=== PATIENT | male | born 1960 | race Caucasian/White ===

== ENCOUNTER 2019-02-02 14:41 | Inpatient (IN) | payer MEDICARE, OTHER ==
[2019-02-02 14:46] VITALS: BMI 18.8
[2019-02-02 14:47] VITALS: BP 215/97; TEMP 96.5
[2019-02-02] MEDS ORDERED: Lorazepam 2 MG/ML VIAL FS PRN (16:38)
[2019-02-02] MEDS ORDERED: Hyoscyamine Sulfate SL 0.125 mg Tablet SL PRN (16:41)
[2019-02-02] MEDS ORDERED: Morphine 10 MG/0.5 ML ORAL SYRINGE PO PRN (16:42)
[2019-02-02] MEDS: Morphine 10 MG/0.5 ML ORAL SYRINGE PO SCH ×2 (17:33→21:27)
[2019-02-02] MEDS: Lorazepam 2 MG/ML VIAL FS SCH ×2 (18:36→19:44)
[2019-02-03] MEDS: Morphine 10 MG/0.5 ML ORAL SYRINGE PO SCH ×8 (00:53→22:40)
--- NOTE | 2019-02-03 03:46 | HP ---
HISTORY OF PRESENT ILLNESS: Mr. Harper is a very pleasant 58-year-old white male with a history of end-stage renal disease, on dialysis. He has finally decided that he is tired of dialysis and all the complications including not being able to pull off enough fluid and continues to go into congestive heart failure. He has decided to join hospice and to become a DNR. His last dialysis day was Saturday. He is admitted to the hospital for respite care for hospice. PAST MEDICAL HISTORY: Significant for; 1. End-stage renal disease. 2. Diabetes. 3. Hypertension. 4. Hyperlipidemia. 5. History of volume overload. 6. Diastolic congestive heart failure dysfunction. 7. History of elevated troponins. 8. Hyperkalemia. 9. Hyperlipidemia. 10. Hypothyroidism. 11. Hypertension. 12. The patient also has had a recent pneumonia. PAST SURGICAL HISTORY: 1. Right aojrk-lth-racs amputation. 2. Left toe amputation. 3. Right forearm shunt with subsequent partial occlusion. 4. Right subclavian dialysis port placed about 7 months ago. FAMILY HISTORY: The patient's father in his 70s of lung cancer and liver disease. The patient's mother in her 50s, and she had a lung cancer. The patient has two brothers and one sister who are supposedly all pretty healthy. SOCIAL HISTORY: Reveals the patient lives with his girlfriend for the last 15 years. He does not smoke. Does not drink. Does not use drugs. He does have a DNR ordered. His girlfriend, Clare, for 15 years is his surrogate decision maker. ALLERGIES: THE PATIENT HAS NO KNOWN ALLERGIES. HOME MEDICATIONS: Include the following; 1. Coreg 12.5 mg b.i.d. 2. Aspirin 81 mg a day. 3. Amlodipine 10 mg a day. 4. Zocor 40 mg h.s. 5. Lopid 600 mg b.i.d. 6. Lasix 80 mg daily. 7. Levemir FlexPen 26 units b.i.d. 8. Synthroid 125 mcg a day. 9. Tramadol 50 mg one to two q.i.d. p.r.n. pain. 10. Calcium which is Tums 1000 mg three times a day. 11. Tessalon Perles 100 mg t.i.d. REVIEW OF SYSTEMS: CONSTITUTIONAL: Reveals the patient denies fever, chills, nausea, vomiting, or any significant pain at this time. The patient denies any hearing or vision problems. The patient denies any palpitations, chest pain, or claudication. The patient denies respiratory problems hip, but states he knows he will get them as soon as his dialysis wears out. He denies any cough at this time. The patient denies any nausea, vomiting, diarrhea, constipation, bloody or black or tarry stools. The patient denies any problems including dysuria, urgency, or frequency. The patient denies musculoskeletal problems except for his BKA and his toe amputation in the past. PHYSICAL EXAMINATION: GENERAL: Reveals a well-developed, well-nourished, very pleasant, alert, oriented x4, white male, in no apparent distress at this time. VITAL SIGNS: Reveal blood pressure 134/67, pulse 67 to 71, respirations 18, O2 saturation is 99%, T-max 97.5. HEENT: Reveals normocephalic and nontraumatic cranium. Pupils are equally round and reactive. Extraocular movements are intact. Nose and throat are slightly dry, but clear. NECK: Supple without masses, nodes, or bruits. CHEST: Clear to auscultation. No rales, rhonchi, or wheezes are heard. The patient does have some coarse breath sounds in the bases, maybe some early crackles. HEART: Reveals a regular rate and rhythm without murmurs, gallops, or rubs. ABDOMEN: Soft, nontender, without organomegaly. Normal bowel sounds are noted. No rebound or guarding is noted. : Deferred. EXTREMITIES: Reveal right dutyb-bzj-xfmu amputation. Left extremities have decreased pulses. ASSESSMENT: 1. End-stage renal disease with the patient denying any more dialysis. 2. Acute on chronic diastolic heart failure. 3. Recent history of volume overload. 4. Recent history of pneumonia. 5. Recent history of elevated troponins. 6. BNP 3900 last checked. 7. Diabetes type 2. 8. Hyperlipidemia. 9. Hypothyroidism. 10. Hypertension. 11. Coronary artery disease. 12. Hyperlipidemia. PLAN: 1. The patient is admitted to [facility] for hospice care. The patient will be made comfortable. The patient has decided that he wants to be a DNR and on hospice. 2. If this patient's disease process continues, the patient's life expectancy is less than two weeks. Job ID: [id number]
[2019-02-03] MEDS: Lorazepam 2 MG/ML VIAL FS SCH ×4 (05:26→22:40)
[2019-02-03] MEDS: Ondansetron ODT 4 MG TAB SL PRN (05:38)
[2019-02-03] MEDS ORDERED: Promethazine HCl 25 MG SUPP PR PRN (10:35)
[2019-02-03] MEDS ORDERED: Morphine 10 MG/0.5 ML ORAL SYRINGE PO PRN (10:37)
[2019-02-03] MEDS ORDERED: Lorazepam 2 MG/ML VIAL FS PRN (10:38)
--- NOTE | 2019-02-03 14:28 | PRG ---
DATE OF SERVICE: 02/03/2019 SUBJECTIVE: Mr. Harper is a very pleasant 58-year-old white male, who has end-stage renal disease and is on dialysis. He decided he was tired of dialysis and is ready to give that up. He also has significant problems with congestive heart failure and basically decided to join hospice and become a DNR. I did see him last night. He was actually doing very well. This morning, he feels poorly and began to already have some filling up with fluid and some shortness of breath and air hunger. We have adjusted his medications. He has no complaints at this time. OBJECTIVE: VITAL SIGNS: Not done. He is on 2 L of nasal cannula. GENERAL: This is a well-developed, thin 58-year-old white male, in no apparent distress at this time. He states he has had a little nausea and we will get some nausea medicine for him. HEENT: Normocephalic and nontraumatic cranium. Pupils are equal, round, and reactive. Extraocular movements are intact. Nose and throat are dry. NECK: Supple without masses, nodes or bruits. CHEST: Clear to auscultation. No rales, rhonchi or wheezes are heard. Coarse breath sounds are little bit worse this morning. He does have some crackles, a little bit more in his bases today. HEART: Regular rate and rhythm. ABDOMEN: Soft and nontender without organomegaly. Normal bowel sounds are noted. No rebound or guarding is noted. : Deferred. EXTREMITIES: Right ighuz-gum-pdef amputation. Left extremities, decreased pulses, but no edema at this time. ASSESSMENT: 1. Hospice patient, in for general inpatient. 2. End-stage renal disease with the patient denying any more dialysis. 3. Acute on chronic diastolic heart failure. 4. Recent history of volume overload. 5. Recent history of pneumonia. 6. Recent history of elevated troponins. 7. BNP last check was 3900. 8. Diabetes type 2. 9. Hyperlipidemia. 10. Hypothyroidism. 11. Hypertension. 12. Coronary artery disease. 13. Hyperlipidemia. PLAN: 1. The patient will continue on hospice care. 2. We will continue to make him comfortable. 3. He continues to want to be a DNR. 4. If the patient's disease process continues, the patient's life expectancy is less than 2 weeks. Job ID: [id number]
[2019-02-04] MEDS: Morphine 10 MG/0.5 ML ORAL SYRINGE PO SCH ×10 (05:36→22:49)
[2019-02-04] MEDS: Lorazepam 2 MG/ML VIAL FS SCH ×6 (05:37→21:25)
--- NOTE | 2019-02-04 14:27 | PRG ---
DATE OF SERVICE: 02/04/2019 SUBJECTIVE: Mr. Harper is a very pleasant 58-year-old white male who has previously end-stage renal disease, on hemodialysis. He was tired of hemodialysis, and he has joined hospice for terminal care. He was brought to the hospital under [facility] for hospice care. The patient states his pain is under good control and he is just feeling weaker and weaker all the time. He denies any significant shortness of breath, but his lungs are more rattly. He has no complaints at this time and states his medications are taking care of his pain. PHYSICAL EXAMINATION: VITAL SIGNS: Again have not been done. GENERAL: This is a well-developed, well-nourished, older than stated age of 58-year-old white male, who states his nausea is under good control. HEENT: Reveals normocephalic and nontraumatic cranium. Pupils are equally round and reactive. Extraocular movements are intact. Nose and throat are dry. NECK: Supple without masses, nodes, or bruits. CHEST: Reveals increasing rales in his bases. No rhonchi or wheezes are heard at this time. Breath sounds are still coarse. HEART: Reveals a regular rate and rhythm. ABDOMEN: Soft and nontender without organomegaly. Normal bowel sounds are noted in all 4 quadrants. No rebound or guarding is noted. : Deferred. EXTREMITIES: Reveal right jfpjz-hdp-evxh amputation and left lower extremity reveals poor to no pulses and no edema. ASSESSMENT: 1. The patient in for [facility]. 2. End-stage renal disease. The patient denies further dialysis. 3. Acute on chronic diastolic heart failure. 4. Recent history of volume overload. 5. Recent history of pneumonia. 6. History of elevated troponins. 7. BNP last check was 3900. 8. Diabetes type 2. 9. Hyperlipidemia. 10. Hypothyroidism. 11. Hypertension. 12. Coronary artery disease. PLAN: 1. The patient will continue hospice care. 2. The patient is a DNR and wants to continue being a DNR. 3. He states he is very comfortable and does not want any of his medicines changed at this time. 4. If the patient's disease process continues, the patient's life expectancy is less than 2 weeks. Job ID: [id number]
[2019-02-05] MEDS: Morphine 10 MG/0.5 ML ORAL SYRINGE PO SCH ×8 (01:17→15:22)
[2019-02-05] MEDS: Lorazepam 2 MG/ML VIAL FS SCH ×5 (01:48→17:20)
[2019-02-05] MEDS: Ondansetron ODT 4 MG TAB SL PRN (15:17)
--- NOTE | 2019-02-06 03:52 | DIS ---
DATE OF ADMISSION: 02/02/2019 DATE OF DISCHARGE: 02/05/2019 SUBJECTIVE: Mr. Harper is a very pleasant 58-year-old white male, who has end-stage renal disease, acute on chronic diastolic heart failure, pneumonia, diabetes type 2, hyperlipidemia, hypothyroidism, and other multiple comorbidities. He was stopped on his dialysis per his choice. He signed a DNR and he wishes to have no more dialysis ever. This morning, the patient actually looks much better. He is not having very much pain. He is off his pain medications. He is breathing better. He says he is not eating or drinking very much. He is dry this morning. He is actually doing very well today. I did have a talk with his hospice nurse and consideration is discharging him to [facility]. PHYSICAL EXAMINATION: GENERAL: This is a well-developed, well-nourished, thin white male, in no apparent distress at this time. HEENT: Normocephalic and nontraumatic cranium. Pupils equal, round, reactive. Extraocular movements are intact. Nose and throat are slightly dry, but clear. NECK: Supple without masses, nodes, or bruits. CHEST: Reveals increasing rales in his bases. No rhonchi or wheezes are heard at this time. Breath sounds are still coarse. HEART: Reveals a regular rate and rhythm without murmurs, gallops, or rubs. ABDOMEN: Soft and nontender without organomegaly. Normal bowel sounds are noted in all 4 quadrants. No rebound or guarding is noted. GENITOURINARY: Deferred. EXTREMITIES: Reveals right zrair-peg-kdwa amputation. Left lower extremity reveals poor to no pulses, but no edema today. IMPRESSION: At this time; 1. End-stage renal disease. The patient denies further dialysis. 2. The patient is on hospice. 3. Acute on chronic diastolic heart failure is much improved since the patient is now very dry. 4. History of volume overload. 5. History of pneumonia. 6. History of elevated troponins. 7. BNP last check was 3900. 8. Diabetes type 2. 9. Hyperlipidemia. 10. Hypothyroidism. 11. Hypertension. 12. Coronary artery disease. PLAN: 1. The patient will continue on hospice care. 2. The patient is being considered to be discharged and moved to [facility]. 3. The patient is a DNR and wants to continue being a DNR. 4. The patient is comfortable at this time, is not needing any pain medicines. 5. If the patient's disease process continues, the patient's life expectancy is still less than 2 weeks. Job ID: [id number]
== END 2019-02-05 17:21 | DRG 951 ==
LOC: NAV ACUTE 14:41
PROVIDERS: ADMIT Family Medicine; ATTEND Family Medicine
DX: Z51.5 Encounter for palliative care (principal); N18.6 End stage renal disease; I50.33 Acute on chronic diastolic (congestive) heart failure; I13.2 Hypertensive heart and chronic kidney disease with heart failure and with stage 5 chronic kidney disease, or end stage renal disease; Z66 Do not resuscitate; E11.22 Type 2 diabetes mellitus with diabetic chronic kidney disease; E78.5 Hyperlipidemia, unspecified; E03.9 Hypothyroidism, unspecified; I25.10 Atherosclerotic heart disease of native coronary artery without angina pectoris; Z99.2 Dependence on renal dialysis; Z87.01 Personal history of pneumonia (recurrent)
CPT/HCPCS: J2060; Q0162